=== PATIENT | male | born 1960 | race Caucasian/White ===

== ENCOUNTER 2020-12-12 14:59 | Emergency (ER) | payer SELFPAY ==
[~2020-12-12] VITALS: Ht 162.6 cm; Wt 72.6 kg
[2020-12-12 15:00] VITALS: BP 94/69
--- NOTE | 2020-12-12 15:04 | NUR ---
EKG AT TRIAGE
--- NOTE | 2020-12-12 15:08 | NUR ---
MERYL PATEL (EX ) - [phone]
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
--- NOTE | 2020-12-12 15:20 | NUR ---
RAD AT BEDSIDE
--- NOTE | 2020-12-12 15:22 | NUR ---
DR PATEL AT BEDSIDE EVALUATING PT
[2020-12-12] MEDS ORDERED: ACETAMINOPHEN EXTRA STRENGTH 500 MG TAB PO ONE (15:35)
[2020-12-12] MEDS ORDERED: ALBUTEROL SULFATE/IPRATROPIU 3 ML SOL IH ONE (15:35)
[2020-12-12] MEDS ORDERED: ALBUTEROL HFA MDI 90 MCG/ACTUATION 8 GM INH ONE (15:35)
[2020-12-12] MEDS ORDERED: predniSONE 20 MG TAB PO ONE (15:35)
[2020-12-12 15:53] LABS: BASOPHILS # (AUTO) 0.1 K/uL (0.00-0.22); EOSINOPHILS # (AUTO) 0.1 K/uL (0-0.4); EOSINOPHILS % (AUTO) 1.6 % (0.0-4.0); HEMATOCRIT 40.7 % (36-52); HEMOGLOBIN 13.5 g/dL (12.0-18.0); LYMPHOCYTES # (AUTO) 1.5 K/uL (2.0-11.5); LYMPHOCYTES % (AUTO) 24.5 % (20.5-51.1); MEAN CORPUSCULAR HEMOGLOBIN 30 pg (27-31); MEAN CORPUSCULAR HGB CONC 33 g/dL (33-37); MEAN CORPUSCULAR VOLUME 88.9 fL (80-94); MONOCYTES # (AUTO) 0.8 K/uL (0.8-1.0); MONOCYTES % (AUTO) 12.6 % (1.7-9.3); NEUTROPHILS # (AUTO) 3.8 K/uL (1.8-7.7); NEUTROPHILS % (AUTO) 60.3 % (42.2-75.2); PLATELET COUNT (AUTO) 299 K/uL (140-450); RED BLOOD CELL COUNT(AUTO) 4.57 MIL/uL (4.20-6.10); RED CELL DISTRIBUTION WIDTH 14.7 % (11.6-13.7); WHITE BLOOD COUNT (AUTO) 6.3 K/uL (4.8-10.8)
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
--- NOTE | 2020-12-12 15:56 | NUR ---
PT REFUSING TX . PT LEFT AMA.
[2020-12-12 16:09] LABS: ALBUMIN 3.3 g/dL (3.4-5.0); ANION GAP 13.2 (8-16); CARBON DIOXIDE 28.2 mmol/L (21-32); CREATININE 0.9 mg/dL (0.6-1.3); POTASSIUM 3.4 mmol/L (3.5-5.1); TOTAL BILIRUBIN 0.6 mg/dL (0.0-1.0)
== END 2020-12-12 15:53 | disposition left against medical advice (07) ==
LOC: MED 14:59
DX: R06.82 Tachypnea, not elsewhere classified (principal); R06.2 Wheezing; J44.9 Chronic obstructive pulmonary disease, unspecified; I10 Essential (primary) hypertension; F17.210 Nicotine dependence, cigarettes, uncomplicated; Z98.890 Other specified postprocedural states
CPT/HCPCS: 36415; 71045; 80053; 83880; 84484; 85025; 93005; 99285; J7512